=== PATIENT | male | born 1950 | race Caucasian/White ===

== ENCOUNTER 2023-03-15 09:46 | Day surgery (SDC) | payer MEDICARE, OTHER ==
[2023-03-15] MEDS ORDERED: Lactated Ringers 1,000 ML IV SCH (10:00)
[2023-03-15] MEDS ORDERED: Sodium Chloride 0.9% 10 ML Syringe FLUSH PRN (10:00)
[2023-03-15] MEDS ORDERED: Propofol 200 MG/20 ML SDV ONE (10:30)
[2023-03-15] MEDS ORDERED: Midazolam 1 MG/ML 2 ML SDV ONE (10:30)
== END 2023-03-15 13:10 | disposition home or self-care (01) ==
LOC: KA.SDS 09:46
PROVIDERS: ATTEND Family Medicine
DX: Z12.11 Encounter for screening for malignant neoplasm of colon (principal); K57.30 Diverticulosis of large intestine without perforation or abscess without bleeding; K64.8 Other hemorrhoids; I10 Essential (primary) hypertension; K21.9 Gastro-esophageal reflux disease without esophagitis; E78.00 Pure hypercholesterolemia, unspecified; Z79.899 Other long term (current) drug therapy; Z91.040 Latex allergy status; Z88.5 Allergy status to narcotic agent
CPT/HCPCS: J2250; J2704; J7120